=== PATIENT | female | born 2000 | race American Indian/Alaskan Native ===

== ENCOUNTER 2020-12-06 11:57 | Emergency (ER) | payer SELFPAY ==
[2020-12-06 12:46] VITALS: BP 109/70
--- NOTE | 2020-12-06 12:50 | Event Note ---
ED Screening Note Date of service: 12/06/20 Time: 12:46 ED Screening Note: 20-year-old -Indian female presents to the emergency room for left lower back pain x4 days started off no nausea gotten worse with lying on that side. She also complains of left breast discharge when she squeezes her nipples. Last delivered about 4 years ago. Last menstrual period 11/05/2020. She complains of pain in her left hip. Denies any trauma no injury. Took ibuprofen 2 days ago. This initial assessment/diagnostic orders/clinical plan/treatment(s) is/are subject to change based on patients health status, clinical progression and re- assessment by fellow clinical providers in the ED. Further treatment and workup at subsequent clinical providers discretion. Patient/guardian urged not to elope from the ED as their condition may be serious if not clinically assessed and managed. Initial orders include:
--- NOTE | 2020-12-06 12:54 | Emergency Department Report ---
Chief Complaint: Back Pain/Injury Stated Complaint: BACK PAIN/BREAST LEAKAGE - HPI History of Present Illness: 20-year-old -English female presents to the emergency room for left lower back pain x4 days started off no nausea gotten worse with lying on that side. She also complains of left breast discharge when she squeezes her nipples. Last delivered about 4 years ago. Last menstrual period 11/05/2020. She complains of pain in her left hip. Denies any trauma no injury. Took ibup rofen 2 days ago. - Exam Vital Signs: Vital Signs 12/06/20 12:07 Temperature 98.5 F Pulse Rate 81 Respiratory 16 Rate Blood Pressure 109/70 O2 Sat by Pulse 100 Oximetry MSE screening note: Focused history and physical exam performed. Due to findings the following was ordered: Gen: alert oriented NAD Left breast: Nonerythematous nonedematous no tender to palpate no discharge or tenderness from the nipple. No lesions appreciated on the breast Cardic: regular rate and rhythm no murmurs appreciated Resp: Clear to auscultation bilateral no wheezing no rales or rhonchi. Abdomen: Soft nontender nondistended normal bowel sounds. Mini neuro: strengh 4/5 all extrimities, Alert and oriented time 3 Crainal nerve II-IIX intact ED Disposition for MSE Disposition: Z MED SCREENING EXAM-LEFT Is pt being admited?: No Does the pt Need Aspirin: No Condition: Stable Additional Instructions: Tylenol or ibuprofen as needed for back pain. care clinic for test Dr. Fine or Dr. Jrugen Bruno primary care. [facility]up at [facility] Referrals: [facility] [Other] - 3-5 Days MEGAN GUAN MD [Staff Physician] - 3-5 Days MALIHA FINE MD [Staff Physician] - 3-5 Days [facility] [Provider Group] - 3-5 Days [facility], [facility] [Provider Group] - 3-5 Days
== END 2020-12-06 13:24 | disposition left against medical advice (07) ==
LOC: ED 11:57
DX: M54.5 Low back pain (principal); Z53.21 Procedure and treatment not carried out due to patient leaving prior to being seen by health care provider

== ENCOUNTER 2021-06-17 14:40 | Emergency (ER) | payer SELFPAY ==
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
[2021-06-17 17:34] LABS: HCG Qualitative,Urine Negative (Negative)
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
[2021-06-17 20:22] VITALS: BP 109/77
== END 2021-06-17 20:20 | disposition home or self-care (01) ==
LOC: ED 14:40
DX: R68.84 Jaw pain (principal); R07.81 Pleurodynia; M26.609 Unspecified temporomandibular joint disorder, unspecified side; J45.909 Unspecified asthma, uncomplicated; Z98.890 Other specified postprocedural states
CPT/HCPCS: 70150; 71111; 81025; 99283